=== PATIENT | female | born 1965 | race Caucasian/White ===

== ENCOUNTER 2018-07-03 07:52 | Inpatient (IN) | payer OTHER ==
[~2018-07-03] VITALS: Ht 167.6 cm; Wt 88.3 kg
[2018-07-03] VITALS (30 sets, daily range): BP systolic 81–155; BP diastolic 54–90; PULSE 68–124; RESP 11–39; Ht 167.6 cm; Wt 88.3 kg
[~2018-07-03 07:52] MED LIST: SUCCINYLCHOLINE CHLORIDE 100 MG/5 ML SYG IV ONE
[2018-07-03] MEDS ORDERED: GLYCOPYRROLATE 0.4 MG INJ ONE (08:56)
[2018-07-03] MEDS ORDERED: ROCURONIUM 50 MG INJ ONE (08:56)
[2018-07-03] MEDS ORDERED: LIDOCAINE 2% (SDV) 5 ML INJ ONE (08:56)
[2018-07-03] MEDS ORDERED: NEOSTIGMINE 3 MG/3 ML SYRINGE ONE (08:56)
[2018-07-03] MEDS ORDERED: PROPOFOL 20 ML ONE (08:56)
[2018-07-03] MEDS ORDERED: MIDAZOLAM 1 MG/ML 2 ML INJ ONE (08:57)
[2018-07-03] MEDS ORDERED: FENTAnyl 50 MCG/ML VIAL ONE ×3 (08:57→12:49)
[2018-07-03] MEDS ORDERED: ONDANSETRON 4 MG INJ ONE ×2 (08:58→12:53)
[2018-07-03] MEDS ORDERED: DEXAMETHASONE 4 MG/ML 5 ML INJ ONE (08:58)
[2018-07-03] MEDS ORDERED: LORAZEPAM 2 MG INJ IV ONE (09:00)
--- NOTE | 2018-07-03 09:54 | PREAC ---
Date/Time of Note Date/Time of Note DATE: 07/03/18 TIME: 09:02 Anesthesia Eval and Record Evaluation Time Pre-Procedure Interview DATE: 07/03/18 TIME: 09:02 Age 53 Sex female NPO: 8 hrs Preoperative diagnosis Left Breast CA Planned procedure Bilateral Mastectomy Past Medical History Past Medical History: Includes Cardio: Other Endo: Other Pulm: Other Neuro: Other Musculoskeletal: Other Renal: Other Hepatic: Other GI: Other Heme: Other Psych: Depression, Anxiety Infection(s): Other Recreational drugs: Other : Other Surgery & Anesthesia Issues Hx of difficult intubation, Aspiration risk Meds Anticoagulation: No Beta Destiny within 24 hr: No Reason Beta Destiny not given: Pt. not on B-Destiny No Active Prescriptions or Reported Meds Current Medications Cefazolin Sodium 50 ml @ 100 mls/hr PRE-OP ONCE IVPB ; Start 07/03/18 at 10:00; Stop 07/03/18 at 10:29 Sodium Chloride 1,000 ml @ 75 mls/hr [id number] ONCE IV Last administered on 07/03/18at 08:48; Admin Dose 75 MLS/HR; Start 07/03/18 at 10:00; Stop 07/03/18 at 23:19 Meds reviewed: Yes Allergies Coded Allergies: pseudoephedrine (Verified Allergy, Unknown, HEART PALPATATIONS, 07/03/18) Allergies Reviewed: Yes Labs/Studies Labs Reviewed: Reviewed by anesthesiologist Result Diagram: 07/03/18 0830 Laboratory Tests 07/03/18 08:30 test: Negative Studies: ECG Pre-procedure Exam Last vitals Vital Signs Date Temp Pulse Resp B/P (MAP) Pulse Ox O2 O2 Flow FiO2 Time Delivery Rate 07/03/18 97.3 79 16 111/56 94 Room Air 08:05 (74) Airway: Adequate mouth opening Mallampati: Mallampati II Teeth: Normal Lung: Normal Heart: Abnormal Anticipated Difficutly with IV: Anticipate Difficult IV Access ASA Physical Status ASA physical status: 2 Emergency: None Planned Anesthetic General/MAC: ETT Neuraxial: Other Nerve block: Other Planned Pain Management Parenteral pain med, Other neuraxial med, Local by surgeon Pre-operative Attestations Prior to commencing anesthesia and surgery, the patient was re-evaluated, there was verification of: *The patient's identity *The results of appropriate recent lab work and preoperative vital signs *The above evaluation not changing prior to induction *Anesthetic plan, risk benefits, alternative and complications discussed with patient/family; questions answered; patient/family understands, accepts and wishes to proceed. JORDIN KEBEDE MD Jul 03, 2018 09:12
[2018-07-03] MEDS ORDERED: CEFAZOLIN 1 GM/50 ML (PMX) 50 ML IVPB ONE (10:00)
[2018-07-03] MEDS ORDERED: SOD CHLORIDE 0.9% 1,000 ML IV ONE (10:00)
[2018-07-03] MEDS ORDERED: PHENYLephrine 10 MG INJ ONE (11:15)
[2018-07-03] MEDS ORDERED: D5W-0.45 NACL + KCL 20 MEQ 1,000 ML IV SCH (12:43)
--- NOTE | 2018-07-03 12:43 | SIPON ---
Date/Time of Note Date/Time of Note DATE: 07/03/18 TIME: 12:41 Operative Report Preoperative Diagnosis Invasive cancer left breast with biopsy-proven left axillary metastasis Postoperative Diagnosis Same Operation/Procedure Performed Left modified radical mastectomy and right mastectomy Surgeon see signature line butcher's assistant Dr Conway Anesthesia: general Estimated blood loss: 100 - 150 ml's Transfusion Required none Specimen Left breast and axillary contents with additional axillary lymph nodes and right breast Grafts/Implants none Complications none GEORGES BURCIAGA MD Jul 03, 2018 12:43
--- NOTE | 2018-07-03 12:46 | PAC ---
Date/Time of Note Date/Time of Note DATE: 07/03/18 TIME: 12:46 Post-Anesthesia Notes Post-Anesthesia Note Last documented vital signs Vital Signs Date Temp Pulse Resp B/P (MAP) Pulse Ox O2 O2 Flow FiO2 Time Delivery Rate 07/03/18 97.3 79 16 111/56 94 Room Air 08:05 (74) Activity: WNL Respiratory function: WNL Cardiovascular function: WNL Mental status: Baseline Pain reasonably controlled: Yes Hydration appropriate: Yes Nausea/Vomiting absent: No JORDIN KEBEDE MD Jul 03, 2018 12:46
[2018-07-03] MEDS ORDERED: MEPERIDINE 25 MG INJ ONE (12:53)
[2018-07-03] MEDS ORDERED: HYDROmorphONE 1 MG/5 ML IV SYRINGE IV ONE ×2 (12:53→13:49)
[2018-07-03] MEDS ORDERED: FENTAnyl 50 MCG/ML VIAL IV PRN ×3 (13:00)
[2018-07-03] MEDS ORDERED: PROCHLORPERAZINE 10 MG INJ IV PRN (13:00)
[2018-07-03] MEDS ORDERED: ALBUMIN HUMAN 5% 250 ML IV PRN (13:00)
[2018-07-03] MEDS ORDERED: MIDAZOLAM 1 MG/ML 2 ML INJ IV PRN (13:00)
[2018-07-03] MEDS ORDERED: morphine 2 MG INJ IV PRN (13:00)
[2018-07-03] MEDS ORDERED: DIPHENHYDRAMINE 50 MG INJ IV PRN (13:00)
[2018-07-03] MEDS ORDERED: MEPERIDINE 25 MG INJ IV PRN (13:00)
[2018-07-03] MEDS ORDERED: ALBUTEROL 0.083% (NEB) 2.5 MG/3 ML AMP HHN PRN (13:00)
[2018-07-03] MEDS ORDERED: HALOPERIDOL 5 MG INJ IV PRN (13:00)
[2018-07-03] MEDS ORDERED: ONDANSETRON 4 MG INJ IV PRN (13:00)
[2018-07-03] MEDS ORDERED: RACEPINEPHRINE 2.25%(NEB) 0.5 ML AMP HHN ONE (13:00)
[2018-07-03] MEDS ORDERED: HYDROmorphONE 1 MG/5 ML IV SYRINGE IV PRN ×3 (13:00)
[2018-07-03] MEDS ORDERED: hydrALAzine 20 MG INJ IV PRN (13:00)
[2018-07-03] MEDS ORDERED: morphine (1 MG/ML) 10ML SYRINGE IV PRN ×2 (13:00)
[2018-07-03] MEDS ORDERED: EPHEDrine SULFATE 50 MG/5 ML SYG IV PRN (13:00)
--- NOTE | 2018-07-03 13:43 | OPR ---
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 OPERATION PERFORMED: Left modified radical mastectomy and right mastectomy. ANESTHESIA: General. ANESTHESIOLOGIST: Víctor Bell MD SURGEON: Preet Monterroso MD SANITARY [place] MACHINE TENDER: Gunnar Conway MD INDICATIONS FOR PROCEDURE: The patient is a 53-year-old female who underwent screening mammography a nd was found very suspicious lesions consistent with microcalcifications in the left breast, one at 2 o'clock and one at 8 o'clock. They were biopsied and both found to be cancer. She was told due to the multicentricity, it was recommended she have a left modified radical mastectomy. It should also be noted that she has biopsy proven left axillary lymph nodes; however, she was HER-2 positive and th erefore received neoadjuvant chemotherapy and subsequently presented for definitive surgical manageme nt. Due to the fact she had great fear that she would develop cancer on the other side, she requeste d bilateral mastectomy. She was seen by attending plastic surgeon, Dr. Marrero. Due to the fact that she had previous implants in place, Dr. Marrero recommended performing the surgery, but leaving the s ubpectoral implants in place to allow for continued expansion of the anterior pectoral space. She th en returned to Dr. Monterroso. After complete discussion, she consented for left modified radical mastect lexi and right mastectomy and was scheduled for surgery. DESCRIPTION OF PROCEDURE: The patient was brought to the operating theater, placed under general end otracheal tube anesthesia. Both breasts and axillary regions were prepped and draped in usual steril e fashion. Attention was first directed to the right side with planned elliptical incision, taking g reat care to preserve a significant amount of breast skin, was demarcated with marking pen widely jj und the nipple areolar complex and was carried out with 15-blade scalpel. Subcutaneous tissue was di ssected with cautery. Skin edges were then elevated with [place]is [place] clamps and skin flaps were crea moody using cautery first superiorly to the clavicle, then medially to the sternal border, inferiorly t o the inframammary fold and laterally until the latissimus dorsi muscle was identified throughout its course. Mastectomy then took place from medial to lateral using cautery. At the border of the pect oralis major muscle, the pectoralis minor muscle was identified. The clavipectoral fascia was incise d and the tail of the breast was then further dissected and finally connective attachments to the lat issimus dorsi muscle were transected. The breast was removed, oriented and sent for permanent pathol ogic analysis. The wound was irrigated. Minimal bleeding was controlled with cautery. Two #10 Fren ch Farrukh-De Anda drains were then brought through the right mid axillary line. One was cut to size a nd laid within the axilla. The other was cut to size and laid over the pectoralis major muscle. Bot h drains were secured in place with 2-0 nylon suture in the standard fashion. Towel clips were then used to reapproximate the skin and the skin was closed with a deep dermal layer of 4-0 Vicryl sutures in interrupted fashion, followed by final skin approximation with skin naa. The patient tolerat ed that portion of procedure well. Attention was then directed to the left side. Again, a planned e lliptical incision was demarcated widely around the nipple areolar complex with taking great care to preserve significant amount of the breast overlying breast skin in anticipation of future reconstruct ion. The incision was carried out with 15-blade scalpel. Subcutaneous tissue was dissected with cau ronny and the skin edges were then elevated with Allis [place] clamps. The skin flaps were then created using cautery, first superiorly to the clavicle, then medially to the sternal border, inferiorly to the inframammary fold and laterally until the latissimus dorsi muscle was identified throughout its c ourse. Mastectomy then took place using cautery from medial to lateral. At the border of the pector christine major muscle, the pectoralis minor muscle was identified. The clavipectoral fascia was incised. A level 1 and partial level 2 dissection were performed using a combination of cautery and LigaSure device. Great care was taken to preserve the intercostal brachial nerves. Final connective tissues attached to the latissimus dorsi muscle were then transected with cautery. The specimen was removed , oriented and sent for permanent pathologic analysis. There was additional suspicious level 2 lymph nodes that were removed separately using the LigaSure device and sent separately for pathologic anal ysis. The wound was irrigated. Minimal bleeding was controlled with cautery. Two #10 flat Farrukh- De Anda drains were then brought through the left mid axillary line, one was cut to size and laid withi n the axilla, the other was cut to size and laid over the pectoralis major muscle. Both drains were secured in place with 2-0 nylon suture in a standard fashion. The skin was then reapproximated using towel clamps and the skin was then further reapproximated with multiple 4-0 Vicryl sutures and deep dermal interrupted fashion. Final skin approximation then took place with skin naa. The patient tolerated the procedure well. The total blood loss was approximately 150 mL. There were no complic ations and the patient was transported in stable condition to the recovery room where circumferential compression dressing was applied. Dictated By: PREET MONTERROSO MD TL/NTS Conf#: [id number] DID#: [id number] CC: KINSEY COOK MD;*EndCC*
[2018-07-03] MEDS ORDERED: DIPHENHYDRAMINE 50 MG INJ ONE (13:49)
--- NOTE | 2018-07-03 13:54 | HP ---
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 S/p left modified radical mastectomy and right mastectomy by Dr Monterroso on 07/03/18. Status post neoadjuvant chemotherapy. Continue IV fluids and postoperative antibiotics. Morphine as needed for pain and Zofran as needed for nausea. -Anxiety and depression, resume patient's home medication. Further recommendations based on clinical course. Plan of care discussed with Dr. Geiger. Result Diagram: 07/03/18 0830 07/03/18 0830 Results 24hrs Laboratory Tests Test 07/03/18 08:30 White Blood Count 5.9 Red Blood Count 4.39 Hemoglobin 12.9 Hematocrit 39.9 Mean Corpuscular Volume 90.9 Mean Corpuscular Hemoglobin 29.4 Mean Corpuscular Hemoglobin Concent 32.3 Red Cell Distribution Width 12.5 Platelet Count 327 Mean Platelet Volume 9.7 Immature Granulocytes % 0.300 Neutrophils % 47.0 Lymphocytes % 37.8 Monocytes % 9.4 Eosinophils % 4.3 Basophils % 1.2 Nucleated Red Blood Cells % 0.0 Immature Granulocytes # 0.020 Neutrophils # 2.8 Lymphocytes # 2.2 Monocytes # 0.6 Eosinophils # 0.3 Basophils # 0.1 Nucleated Red Blood Cells # 0.0 Prothrombin Time 11.3 L Prothrombin Time Ratio 0.9 INR International Normalized Ratio 0.81 Activated Partial Thromboplast Time 33.8 Sodium Level 143 Potassium Level 4.1 Chloride Level 107 Carbon Dioxide Level 25 Anion Gap 11 Blood Urea Nitrogen 23 H Creatinine 0.74 Est Glomerular Filtrat Rate mL/min > 60 Glucose Level 101 Calcium Level 9.6 Total Bilirubin 0.1 L Direct Bilirubin 0.00 Indirect Bilirubin 0.1 Aspartate Amino Transf (AST/SGOT) 19 Alanine Aminotransferase (ALT/SGPT) 18 Alkaline Phosphatase 69 Total Protein 7.2 Albumin 4.2 Globulin 3.00 Albumin/Globulin Ratio 1.40 HPI/ROS Admit Date/Time Admit Date/Time Jul 03, 2018 at 07:52 Hx of Present Illness The patient is a 53-year-old female who was found suspicious lesions on screening mammography in her left breast. Subsequent biopsy revealed invasive cancer. The tumor was ER negative CA negative but HER-2 positive. Patient received neoadjuvant chemotherapy after which she was seen by Dr. Monterroso in a general surgery consultation and was counseled regarding left modified radical mastectomy. Patient had a grade fever she would develop cancer in her right breast and she requested bilateral mastectomy. Patient has breast implants and was evaluated by Dr. Marrero and plastic surgery consultation with recommendations to leave sub-pictorial implants in place to allow for continued expansion of the anterior pectoral space. Patient was brought to the hospital and underwent bilateral mastectomy. Postoperatively patient experiencing significant pain and mild nausea and patient will be admitted for further evaluation and management. ROS 12 point review of systems negative except for what mentioned in HPI PMH/Family/Social Past Medical History Medical History: other (Depression and anxiety) Medications Current Medications Sodium Chloride 1,000 ml @ 75 mls/hr [id number] ONCE IV Last administered on 07/03/18at 08:48; Admin Dose 75 MLS/HR; Start 07/03/18 at 10:00; Stop 07/03/18 at 23:19 Ondansetron HCl (Zofran Inj) 4 mg Q6H PRN IV NAUSEA AND/OR VOMITING; Start 07/03/18 at 13:00; Stop 07/03/18 at 19:00; Status UNV Potassium Chloride/Dextrose/ Sod Cl 1,000 ml @ 125 mls/hr Q8H IV ; Start 07/03/18 at 12:43; Stop 07/03/18 at 19:00 Morphine Sulfate (morphine) 2 mg Q1H PRN IV PAIN; Start 07/03/18 at 13:00; Stop 07/03/18 at 19:00; Status UNV Acetaminophen 100 ml @ 400 mls/hr Q6H PRN IVPB PAIN; Start 07/03/18 at 13:00; Stop 07/03/18 at 19:00; Status UNV Morphine Sulfate (morphine (REC)) 2 mg PACU ORDER PRN IV MILD PAIN LEVEL 1-3; Start 07/03/18 at 13:00; Stop 07/03/18 at 19:00; Status UNV Morphine Sulfate (morphine (REC)) 4 mg PACU ORDER PRN IV MODERATE PAIN LEVEL 4- 6; Start 07/03/18 at 13:00; Stop 07/03/18 at 19:00; Status UNV Hydromorphone HCl (Dilaudid) 0.2 mg PACU PRN IV MILD PAIN LEVEL 1-3; Start 07/03/18 at 13:00; Stop 07/03/18 at 19:00; Status UNV Hydromorphone HCl (Dilaudid) 0.4 mg PACU PRN IV MODERATE PAIN LEVEL 4-6; Start 07/03/18 at 13:00; Stop 07/03/18 at 19:00; Status UNV Hydromorphone HCl (Dilaudid) 0.6 mg PACU PRN IV SEVERE PAIN LEVEL 7-10; Start 07/03/18 at 13:00; Stop 07/03/18 at 19:00; Status UNV Fentanyl (Sublimaze) 25 mcg PACU ORDER PRN IV MILD PAIN LEVEL 1-3; Start 07/03/18 at 13:00; Stop 07/03/18 at 19:00; Status UNV Fentanyl (Sublimaze) 50 mcg PACU ORDER PRN IV MODERATE PAIN LEVEL 4-6; Start 07/03/18 at 13:00; Stop 07/03/18 at 19:00; Status UNV Fentanyl (Sublimaze) 75 mcg PACU ORDER PRN IV SEVERE PAIN LEVEL 7-10; Start 07/03/18 at 13:00; Stop 07/03/18 at 19:00; Status UNV Ondansetron HCl (Zofran Inj) 4 mg PACU ORDER PRN IV NAUSEA AND/OR VOMITING; Start 07/03/18 at 13:00; Stop 07/03/18 at 19:00; Status UNV Prochlorperazine (Compazine Inj) 5 mg PACU ORDER PRN IV NAUSEA AND/OR VOMITING; Start 07/03/18 at 13:00; Stop 07/03/18 at 19:00; Status UNV Haloperidol (Haldol) 1 mg PACU ORDER PRN IV NAUSEA AND/OR VOMITING; Start 07/03/18 at 13:00; Stop 07/03/18 at 19:00; Status UNV Hydralazine HCl (Apresoline) 5 mg PACU ORDER PRN IV ELEVATED BLOOD PRESSURE; Start 07/03/18 at 13:00; Stop 07/03/18 at 19:00; Status UNV Ephedrine Sulfate 5 mg PACU ORDER PRN IV BLOOD PRESSURE SUPPORT; Start 07/03/18 at 13:00; Stop 07/03/18 at 19:00; Status UNV Albumin Human 250 ml @ 750 mls/hr PACU ORDER PRN IV BLOOD PRESSURE SUPPORT; Start 07/03/18 at 13:00; Stop 07/03/18 at 19:00; Status UNV Albuterol (Proventil 0.083% (Neb)) 2.5 mg PACU ORDER PRN HHN WHEEZING; Start 07/03/18 at 13:00; Stop 07/03/18 at 19:00; Status UNV Epinephrine (Racepinephrine 2.25% (Neb)) 0.5 ml PACU ORDER ONCE HHN ; Start 07/03/18 at 13:00; Stop 07/03/18 at 13:01; Status UNV Meperidine HCl (Demerol) 25 mg PACU ORDER PRN IV POST OPERATIVE SHIVERING; Start 07/03/18 at 13:00; Stop 07/03/18 at 19:00; Status UNV Diphenhydramine HCl (Benadryl) 25 mg PACU ORDER PRN IV PRURITUS; Start 07/03/18 at 13:00; Stop 07/03/18 at 19:00; Status UNV Midazolam HCl (Versed) 0.5 mg PACU ORDER PRN IV ANXIETY; Start 07/03/18 at 13:00; Stop 07/03/18 at 19:00; Status UNV Coded Allergies: pseudoephedrine (Verified Allergy, Unknown, HEART PALPATATIONS, 07/03/18) Past Surgical History Past Surgical Hx: other (Status post breast augmentation status post abdominoplasty, status post abdominal wall hernia repair, status post cholecystectomy) Family History Significant Family History: no pertinent family hx (Negative for breast or ovarian cancer) Social History Alcohol Use: none Smoking Status: Never smoker Drug Use: none Exam/Review of Systems Vital Signs Vitals Vital Signs Date Temp Pulse Resp B/P (MAP) Pulse Ox O2 O2 Flow FiO2 Time Delivery Rate 07/03/18 97.4 12:47 07/03/18 79 16 111/56 94 Room Air 08:05 (74) Exam Constitutional: alert Eyes: nl conjunctiva ENMT: nl external ears & nose Neck: supple Respiratory: clear to auscultation Cardiovascular: regular rate and rhythm Gastrointestinal: soft, non-tender Musculoskeletal: nl extremities to inspection Extremities: normal pulses Neurological: nl mental status, lethargic Skin: nl turgor Additional Comments Status post bilateral mastectomies bilateral axillary JPs x2 KELECHI NICHOLE Jul 03, 2018 13:54
[2018-07-03] MEDS ORDERED: METOPROLOL 5 MG INJ IV ONE (15:30)
[2018-07-03] MEDS ORDERED: SOD CHLORIDE 0.9% 500 ML IV ONE (18:00)
[2018-07-03] MEDS: LORAZEPAM 1 MG TAB PO PRN (18:19)
[2018-07-03] MEDS: ONDANSETRON 4 MG INJ IV PRN (18:59)
[2018-07-03] MEDS: D5W-0.45 NACL + KCL 20 MEQ 1,000 ML IV SCH (19:00)
[2018-07-03] MEDS: morphine SULFATE/PF (2 MG/2 ML) SYG IV PRN ×2 (20:41→22:01)
[2018-07-03] MEDS: ACETAMINOPHEN 1000MG/100ML IV 100 ML IVPB PRN (20:42)
[2018-07-04] VITALS: BP 126/63; PULSE 100; RESP 18
[2018-07-04] MEDS: morphine SULFATE/PF (2 MG/2 ML) SYG IV PRN ×7 (00:25→12:32)
[2018-07-04] MEDS: LORAZEPAM 1 MG TAB PO PRN ×3 (02:57→19:49)
[2018-07-04] MEDS: ONDANSETRON 4 MG INJ IV PRN ×3 (02:58→20:18)
[2018-07-04] MEDS: ACETAMINOPHEN 1000MG/100ML IV 100 ML IVPB PRN (03:00)
[2018-07-04] MEDS: D5W-0.45 NACL + KCL 20 MEQ 1,000 ML IV SCH ×3 (03:01→19:00)
[2018-07-04 04:00] VITALS: BP 120/73; PULSE 90; RESP 18
[2018-07-04 07:35] VITALS: BP 132/56; RESP 18
[2018-07-04] MEDS: HYDROCODONE/APAP (10/325) TAB PO PRN ×3 (14:00→22:28)
[2018-07-04 14:36] VITALS: BP 118/54; PULSE 107; RESP 18
--- NOTE | 2018-07-04 14:55 | PN ---
DATE: 07/04/2018 Postop day #1 status post bilateral mastectomy and one side left modified radical mastectomy because of the cancer. SUBJECTIVE: The patient has been complaining of too much pain and also complaining of generalized joint pain which of course has been going on since she has been receiving the neoadjuvant chemotherapy. OBJECTIVE: GENERAL: Awake, alert, oriented x3. VITAL SIGNS: Temperature maximum today 98.9, heart rate maximum 110, respirations 18, blood pressure 120/73, saturation 98% on room air. HEART: Regular. LUNGS: Clear. ABDOMEN: Soft. CHEST WALL: The wraparound dressing around the chest is not too tight. LABORATORY DATA: There are no blood tests done today. INPUT AND OUTPUT: There are 4 Farrukh-De Anda drains, 2 from each side of the operation and drainage in past several hours including from time of termination of the operation in the operating room yesterday to 7:00 AM today morning has been recorded to be 145 mL on one side and 150 mL on the other side. The drainage is bloody and actually, there are a lot of blood clots in the tubing, so the tubing was milked to evacuate the blood clots from the tubing so to facilitate its drainage.( suspecting more bleeding in the wound on left side). PLAN: Considering that the patient has been experiencing too much pain and also the drainage is quite bloody and is not serosanguineous yet, therefore we are going to keep the patient at least overnight to check the hemoglobin and hematocrit today and to check it tomorrow morning and also make sure that the Farrukh-De Anda drains are evacuating the drainage properly. Dictated By: MO LASSITER MD PS/NTS Conf#: [id number] DID#: [id number] CC: KINSEY COOK MD; GEORGES BURCIAGA MD;*EndCC* MTDD
[2018-07-04] MEDS: morphine 4 MG/ML VIAL IV PRN ×2 (16:31→20:19)
--- NOTE | 2018-07-04 16:53 | PN ---
Date/Time of Note Date/Time of Note DATE: 07/04/18 TIME: 16:52 Assessment/Plan VTE Prophylaxis Risk score (from [facility])>0 risk: 6 SCD applied (from [facility]): Yes Pharmacological prophylaxis: NA/contraindicated Pharm contraindication: bleeding, surgical contra Lines/Catheters IV [facility]ter Type (from [facility]): Peripheral IV Assessment/Plan Hospital Course Patient has a moderate to large output from DONALD has total of 4 DONALD 2 on each side, hemoglobin dropped to 6.1, patient is getting blood transfusion, complains of pain continue [place] and morphine as needed. 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 S/p left modified radical mastectomy and right mastectomy by Dr Monterroso on 07/03/18. Status post neoadjuvant chemotherapy. Continue postoperative antibiotics. Continue pain management. -Anemia of acute blood loss, patient has moderate to large out fluid from bilateral JPs, transfused 2 units of packed red blood cells, CBC tomorrow. -Anxiety and depression Further recommendations based on clinical course. Plan of care discussed with Dr. Geiger. Result Diagram: 07/04/18 1403 07/03/18 0830 Results 24hrs Laboratory Tests Test 07/04/18 07:33 07/04/18 14:03 Lab Scanned Report LAB White Blood Count 7.5 # Red Blood Count 1.99 #L Hemoglobin 6.1 #*L Hematocrit 19.0 #L Mean Corpuscular Volume 95.5 Mean Corpuscular Hemoglobin 30.7 Mean Corpuscular Hemoglobin Concent 32.1 Red Cell Distribution Width 13.4 Platelet Count 203 # Mean Platelet Volume 10.1 Immature Granulocytes % 0.300 Neutrophils % Segmented Neutrophils % (Manual) 66 Band Neutrophils % (Manual) 2 Lymphocytes % Lymphocytes % (Manual) 28 Monocytes % Monocytes % (Manual) 2 Eosinophils % Eosinophils % (Manual) 1 Basophils % Basophils % (Manual) 1 Nucleated Red Blood Cells % 0.0 Immature Granulocytes # 0.020 Neutrophils # Neutrophils # (Manual) 5.0 Band Neutrophils # 0.1 Lymphocytes (Manual) 2.1 Lymphocytes # Monocytes # Monocytes # (Manual) 0.1 L Eosinophils # Basophils # Basophils # (Manual) 0.0 Nucleated Red Blood Cells # Platelet Estimate NORMAL Giant Platelets 3 H Anisocytosis 2+ Microcytosis 2+ Prothrombin Time 13.9 # Prothrombin Time Ratio 1.1 INR International Normalized Ratio 1.06 Activated Partial Thromboplast Time 31.5 Exam/Review of Systems Vital Signs Vitals Vital Signs Date Temp Pulse Resp B/P (MAP) Pulse Ox O2 O2 Flow FiO2 Time Delivery Rate 07/04/18 98.6 107 18 118/54 100 14:36 (75) 07/04/18 Nasal 2.0 04:00 Cannula Intake and Output 07/03/18 07/03/18 07/04/18 1515:00 23:00 07:00 IntakeIntake Total 1260 ml 890 ml 1180 ml OutputOutput Total 325 ml 25 ml 110 ml BalanceBalance 935 ml 865 ml 1070 ml Exam Constitutional: alert, oriented x3 Respiratory: clear to auscultation Cardiovascular: nl pulse Gastrointestinal: soft, non-tender Musculoskeletal: nl extremities to inspection Extremities: normal pulses Additional Comments Status post bilateral mastectomies bilateral axillary JPs x2 Medications Medications Current Medications Ondansetron HCl (Zofran Inj) 4 mg Q6H PRN IV NAUSEA AND/OR VOMITING Last administered on 07/04/18at 12:32; Admin Dose 4 MG; Start 07/03/18 at 13:00 Lorazepam (Ativan) 1 mg Q8H PRN PO ANXIETY Last administered on 07/04/18 11:25; Admin Dose 1 MG; Start 07/03/18 at 18:00 Potassium Chloride/Dextrose/ Sod Cl 1,000 ml @ 125 mls/hr Q8H IV Last administered on 07/04/18 11:29; Admin Dose 125 MLS/HR; Start 07/03/18 at 19:00 Acetaminophen/ Hydrocodone Bitart ([place] (10/325)) 1 tab Q4H PRN PO MODERATE PAIN LEVEL 4-6 Last administered on 07/04/18at 14:00; Admin Dose 1 TAB; Start 07/04/18 at 14:00 Morphine Sulfate (morphine) 3 mg Q4H PRN IV breakthrough pain Last administered on 07/04/18at 16:31; Admin Dose 3 MG; Start 07/04/18 at 14:00 Zolpidem Tartrate (Ambien) 5 mg HS MAY REPEAT X 1 PRN PO INSOMNIA; Start 07/04/18 at 14:00 KELECHI NICHOLE Jul 04, 2018 16:53
[2018-07-04 19:32] VITALS: BP 130/57; PULSE 105; RESP 18
--- NOTE | 2018-07-04 19:45 | RADRPT ---
Vent Rate: 67 bpm RR Interval: 0 msec MA Interval: 128 msec QRS Duration: 96 msec QT Interval: 434 msec QTC Interval: 458 msec P-R-T [place]: 38 - 112 - 86 degrees Normal sinus rhythm Left posterior fascicular block Abnormal ECG Electronically Signed By: Tk Eagle [id number]
[2018-07-04] MEDS: ZOLPIDEM 5 MG TAB PO PRN ×2 (20:19→22:34)
[2018-07-04] MEDS ORDERED: DIPHENHYDRAMINE 25 MG CAP ONE (20:44)
[2018-07-04] MEDS: DIPHENHYDRAMINE 25 MG CAP PO PRN (21:09)
[2018-07-05] VITALS (9 sets, daily range): BP systolic 104–140; BP diastolic 51–64; PULSE 89–113; RESP 16–18
[2018-07-05] MEDS: morphine 4 MG/ML VIAL IV PRN ×5 (00:37→21:36)
[2018-07-05] MEDS: DIPHENHYDRAMINE 25 MG CAP PO PRN ×2 (02:40→11:13)
[2018-07-05] MEDS: HYDROCODONE/APAP (10/325) TAB PO PRN ×5 (02:40→23:36)
[2018-07-05] MEDS: D5W-0.45 NACL + KCL 20 MEQ 1,000 ML IV SCH ×3 (03:00→17:18)
[2018-07-05] MEDS: LORAZEPAM 1 MG TAB PO PRN ×3 (04:59→23:33)
[2018-07-05] MEDS: ONDANSETRON 4 MG INJ IV PRN (11:18)
--- NOTE | 2018-07-05 13:30 | PN ---
DATE: 07/05/2018 Postop day #2. Operation: Left modified radical mastectomy for cancer of breast, status post neoadjuvant chemotherapy and also right mastectomy. SUBJECTIVE: Feels slightly better, but still has some pain in the chest mainly on the left side. No nausea, no vomiting, is tolerating diet. OBJECTIVE: GENERAL: Awake, alert, oriented, moves both upper extremities in full range. VITAL SIGNS: Temperature maximum 99.9, heart rate 97, respirations 16, blood pressure 104/51, saturation 95% on room air. HEART: Regular. LUNGS: Clear. SKIN: Dressing is intact. There is some swelling on the left chest anteriorly comparing to the right side. INPUT AND OUTPUT: Still the drainage from the left Farrukh-De Anda is bloody. Right side is serosanguineous. The drainage in the past 24 hours on the right side has been 120 mL. It is serosanguineous. On the left side, there is 150 mL which is bloody and blood clots. LABORATORY DATA: Apparently yesterday afternoon when we checked the H and H, the H and H has dropped to 6.1 hemoglobin and hematocrit of 19, so Dr. Monterroso had been notified and he ordered transfusion of 2 units of packed cell and transfusion was finished around 5:00 a.m. per nurse then 2 hours later at 7:30 in the morning today they checked another CBC and H and H. The hemoglobin now is 8.2 and hematocrit of 25.6, platelets 177. Obviously the patient has had bleeding at the site of the operation mainly on the left breast mastectomy site.. PLAN: After discussing with Dr. Monterroso decision was made to take the patient to the OR and evacuate the hematoma. The patient has had breakfast today. Therefore, we are going to do it tomorrow morning hopefully as soon as we can find a spot in the operating room. The patient will be kept n.p.o. I explained to the patient and her about the plan and after discussion, she accepted that and we are going to proceed for evacuation of hematoma tomorrow. Meanwhile, we will check the H and H every 8 hours and if needed, we will give more blood transfusion. Dictated By: MO ALMANZAR/JEANNINE Conf#: [id number] DID#: [id number] CC: KINSEY COOK MD; GEORGES MONTERROSO MD;*EndCC* MTDD
--- NOTE | 2018-07-05 16:40 | PN ---
Date/Time of Note Date/Time of Note DATE: 07/05/18 TIME: 16:37 Assessment/Plan VTE Prophylaxis Risk score (from Ns)>0 risk: 6 SCD applied (from Ns): Yes Pharmacological prophylaxis: NA/contraindicated Pharm contraindication: bleeding Lines/Catheters [facility] Assessment/Plan Hospital Course Patient with significant drainage from the DONALD patient's complaints of heaviness in both breast apparently has left breast hematoma per surgery and significant d rop in hemoglobin, patient is undergoing blood transfusion with hemoglobin and hematocrit monitoring every 8 hours. Plan for evacuation of hematoma tomorrow in the OR, continue current pain management. 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 S/p left modified radical mastectomy and right mastectomy by Dr Monterroso on 07/03/18. Status post neoadjuvant chemotherapy. Continue postoperative antibiotics. Continue pain management. -Anemia of acute blood loss, patient has moderate to large out fluid from bilateral JPs, transfuse as needed, H&H every 8 hours. -Left breast hematoma, plan for evacuation of hematoma tomorrow in the OR. -Anxiety and depression Further recommendations based on clinical course. Plan of care discussed with Dr. Geiger. Result Diagram: 07/05/18 1453 07/05/18 0730 Results 24hrs Laboratory Tests Test 07/05/18 07:30 07/05/18 07:30 07/05/18 14:53 White Blood Count 7.8 Red Blood Count 2.78 #L Hemoglobin 8.2 #L 7.7 L Hematocrit 25.6 #L 23.7 L Mean Corpuscular Volume 92.1 Mean Corpuscular Hemoglobin 29.5 Mean Corpuscular 32.0 Hemoglobin Concent Red Cell Distribution Width 14.3 Platelet Count 177 Mean Platelet Volume 9.8 Immature Granulocytes % 0.500 H Neutrophils % 49.6 Lymphocytes % 36.0 Monocytes % 9.5 Eosinophils % 3.5 Basophils % 0.9 Nucleated Red Blood Cells % 0.0 Immature Granulocytes # 0.040 H Neutrophils # 3.8 Lymphocytes # 2.8 Monocytes # 0.7 Eosinophils # 0.3 Basophils # 0.1 Nucleated Red Blood Cells # 0.0 Sodium Level 135 Potassium Level 4.1 Chloride Level 107 Carbon Dioxide Level 24 Anion Gap 4 L Blood Urea Nitrogen 14 # Creatinine 0.72 Est Glomerular Filtrat > 60 Rate mL/min Glucose Level 95 Calcium Level 8.0 L Lab Scanned Report BLOOD TRANSFUSION Exam/Review of Systems Vital Signs Vitals Vital Signs Date Temp Pulse Resp B/P (MAP) Pulse Ox O2 O2 Flow FiO2 Time Delivery Rate 07/05/18 98.4 89 16 111/53 97 14:07 (72) 07/04/18 Nasal 2.0 04:00 Cannula Intake and Output 07/04/18 07/04/18 07/05/18 1414:59 22:59 06:59 IntakeIntake Total 1480 ml 1750 ml 940 ml OutputOutput Total 80 ml 190 ml BalanceBalance 1480 ml 1670 ml 750 ml Exam Constitutional: alert, oriented x3 Respiratory: clear to auscultation Cardiovascular: nl pulse Gastrointestinal: soft, non-tender Musculoskeletal: nl extremities to inspection Extremities: normal pulses Additional Comments Status post bilateral mastectomies bilateral axillary JPs x2 Medications Medications Current Medications Ondansetron HCl (Zofran Inj) 4 mg Q6H PRN IV NAUSEA AND/OR VOMITING Last administered on 07/05/18at 11:18; Admin Dose 4 MG; Start 07/03/18 at 13:00 Lorazepam (Ativan) 1 mg Q8H PRN PO ANXIETY Last administered on 07/05/18at 13:18; Admin Dose 1 MG; Start 07/03/18 at 18:00 Potassium Chloride/Dextrose/ Sod Cl 1,000 ml @ 125 mls/hr Q8H IV Last administered on 07/05/18at 08:06; Admin Dose 125 MLS/HR; Start 07/03/18 at 19:00 Acetaminophen/ Hydrocodone Bitart ([place] (10/325)) 1 tab Q4H PRN PO MODERATE PAIN LEVEL 4-6 Last administered on 07/05/18at 11:51; Admin Dose 1 TAB; Start 07/04/18 at 14:00 Morphine Sulfate (morphine) 3 mg Q4H PRN IV breakthrough pain Last administered on 07/05/18at 09:19; Admin Dose 3 MG; Start 07/04/18 at 14:00 Zolpidem Tartrate (Ambien) 5 mg HS MAY REPEAT X 1 PRN PO INSOMNIA Last administered on 07/04/18at 22:34; Admin Dose 5 MG; Start 07/04/18 at 14:00 Diphenhydramine HCl (Benadryl) 25 mg Q6H PRN PO ITCHING Last administered on 07/05/18at 11:13; Admin Dose 25 MG; Start 07/04/18 at 21:00 KELECHI NICHOLE Jul 05, 2018 16:40
[2018-07-05] MEDS: ZOLPIDEM 5 MG TAB PO PRN ×2 (21:06→22:23)
[2018-07-06] VITALS (25 sets, daily range): BP systolic 117–171; BP diastolic 58–88; PULSE 72–105; RESP 16–20
[2018-07-06] MEDS: DIPHENHYDRAMINE 25 MG CAP PO PRN (01:37)
[2018-07-06] MEDS: morphine 4 MG/ML VIAL IV PRN ×4 (02:03→21:31)
[2018-07-06] MEDS: D5W-0.45 NACL + KCL 20 MEQ 1,000 ML IV SCH ×4 (03:00→19:31)
[2018-07-06] MEDS: LORAZEPAM 2 MG INJ IV PRN ×2 (04:31→14:20)
--- NOTE | 2018-07-06 07:28 | PREAC ---
Date/Time of Note Date/Time of Note DATE: 07/06/18 TIME: 07:26 Anesthesia Eval and Record Evaluation Time Pre-Procedure Interview DATE: 07/06/18 TIME: 07:26 Age 53 Sex female NPO: 8 hrs Preoperative diagnosis left breast hematoma Planned procedure excision of left breast hematoma Past Medical History Past Medical History: Includes GI: Obesity Psych: Anxiety Surgery & Anesthesia Issues No known issue Meds Anticoagulation: No Beta Destiny within 24 hr: No Reason Beta Destiny not given: Pt. not on B-Destiny No Active Prescriptions or Reported Meds Current Medications Ondansetron HCl (Zofran Inj) 4 mg Q6H PRN IV NAUSEA AND/OR VOMITING Last administered on 07/05/18at 11:18; Admin Dose 4 MG; Start 07/03/18 at 13:00 Lorazepam (Ativan) 1 mg Q8H PRN PO ANXIETY Last administered on 07/05/18at 23:33; Admin Dose 1 MG; Start 07/03/18 at 18:00 Potassium Chloride/Dextrose/ Sod Cl 1,000 ml @ 125 mls/hr Q8H IV Last administered on 07/06/18at 04:34; Admin Dose 125 MLS/HR; Start 07/03/18 at 19:00 Acetaminophen/ Hydrocodone Bitart ([place] (10/325)) 1 tab Q4H PRN PO MODERATE PAIN LEVEL 4-6 Last administered on 07/05/18at 23:36; Admin Dose 1 TAB; Start 07/04/18 at 14:00 Morphine Sulfate (morphine) 3 mg Q4H PRN IV breakthrough pain Last administered on 07/06/18at 02:03; Admin Dose 3 MG; Start 07/04/18 at 14:00 Zolpidem Tartrate (Ambien) 5 mg HS MAY REPEAT X 1 PRN PO INSOMNIA Last administered on 07/05/18 22:23; Admin Dose 5 MG; Start 07/04/18 at 14:00 Diphenhydramine HCl (Benadryl) 25 mg Q6H PRN PO ITCHING Last administered on 07/06/18at 01:37; Admin Dose 25 MG; Start 07/04/18 at 21:00 Lorazepam (Ativan) 0.5 mg Q6H PRN IV ANXIETY Last administered on 07/06/18at 04:31; Admin Dose 0.5 MG; Start 07/05/18 at 17:00 Meds reviewed: Yes Allergies Coded Allergies: pseudoephedrine (Verified Allergy, Unknown, HEART PALPATATIONS, 07/03/18) Allergies Reviewed: Yes Labs/Studies Labs Reviewed: Reviewed by anesthesiologist Result Diagram: 07/06/18 0436 07/06/18 0436 Laboratory Tests 07/06/18 04:36 test: Negative Pre-procedure Exam Last vitals Vital Signs Date Temp Pulse Resp B/P (MAP) Pulse Ox O2 O2 Flow FiO2 Time Delivery Rate 07/06/18 99.0 97 18 136/64 04:00 (88) 07/05/18 100 19:34 07/04/18 Nasal 2.0 04:00 Cannula Airway: Adequate mouth opening, Adequate thyromental dist Mallampati: Mallampati II Teeth: Normal Lung: Normal Heart: Normal ASA Physical Status ASA physical status: 2 Emergency: None Planned Anesthetic General/MAC: LMA Planned Pain Management Parenteral pain med Pre-operative Attestations Prior to commencing anesthesia and surgery, the patient was re-evaluated, there was verification of: *The patient's identity *The results of appropriate recent lab work and preoperative vital signs *The above evaluation not changing prior to induction *Anesthetic plan, risk benefits, alternative and complications discussed with patient/family; questions answered; patient/family understands, accepts and wishes to proceed. THANG LYN MD Jul 06, 2018 07:28
[2018-07-06] MEDS ORDERED: FENTAnyl 50 MCG/ML VIAL ONE (07:47)
[2018-07-06] MEDS ORDERED: MIDAZOLAM 1 MG/ML 2 ML INJ ONE ×2 (07:47→08:02)
[2018-07-06] MEDS ORDERED: LIDOCAINE 2% (SDV) 5 ML INJ ONE (07:48)
[2018-07-06] MEDS ORDERED: PROPOFOL 20 ML ONE (07:48)
[2018-07-06] MEDS ORDERED: PHENYLephrine (100 MCG/ML) 5ML SYG ONE (08:11)
[2018-07-06] MEDS ORDERED: CEFAZOLIN 1 GM INJ ONE (08:11)
[2018-07-06] MEDS ORDERED: ONDANSETRON 4 MG INJ ONE (08:13)
[2018-07-06] MEDS ORDERED: DEXAMETHASONE 4 MG/ML 5 ML INJ ONE (08:13)
[2018-07-06] MEDS ORDERED: FAMOTIDINE 20 MG INJ ONE (08:13)
[2018-07-06] MEDS ORDERED: FENTAnyl 50 MCG/ML VIAL IV PRN (08:30)
[2018-07-06] MEDS ORDERED: ONDANSETRON 4 MG INJ IV PRN (08:30)
[2018-07-06] MEDS ORDERED: DIPHENHYDRAMINE 50 MG INJ IV PRN (08:30)
[2018-07-06] MEDS ORDERED: HYDROmorphONE 1 MG/5 ML IV SYRINGE IV PRN ×3 (08:30)
[2018-07-06] MEDS ORDERED: MEPERIDINE 25 MG INJ IV PRN (08:30)
[2018-07-06] MEDS ORDERED: PROCHLORPERAZINE 10 MG INJ IV PRN (08:30)
[2018-07-06] MEDS ORDERED: HYDROmorphONE 2 MG/ML SYG ONE (09:07)
--- NOTE | 2018-07-06 09:39 | SIPON ---
Date/Time of Note Date/Time of Note DATE: 07/06/18 TIME: 09:32 Operative Report Preoperative Diagnosis Left breast hematoma status post operation modified radical mastectomy. Postoperative Diagnosis The same Operation/Procedure Performed Exploration of the wound. Evacuation of hematoma. Irrigation of the wound with warm normal saline. Placement of 2 new Farrukh-De Anda drains. Closure of the wound in 2 layers. Surgeon see signature line catering administrative assistant None Anesthesia: general Estimated blood loss: 0 - 10 ml's Transfusion Required none Specimen Cultures from the hematoma. Grafts/Implants none Complications none MO LASSITER MD Jul 06, 2018 09:39
--- NOTE | 2018-07-06 09:51 | PAC ---
Date/Time of Note Date/Time of Note DATE: 07/06/18 TIME: 09:49 Post-Anesthesia Notes Post-Anesthesia Note Last documented vital signs Vital Signs Date Temp Pulse Resp B/P (MAP) Pulse Ox O2 O2 Flow FiO2 Time Delivery Rate 07/06/18 99.0 97 18 136/64 04:00 (88) 07/05/18 100 19:34 07/04/18 Nasal 2.0 04:00 Cannula Activity: WNL Respiratory function: WNL Cardiovascular function: WNL Mental status: Baseline Pain reasonably controlled: Yes Hydration appropriate: Yes Nausea/Vomiting absent: Yes Comments BP: 131/68 HR: 77 RR: 15 T: 98.3 SaO2: 99% THANG LYN MD Jul 06, 2018 09:51
[2018-07-06] MEDS: CEFAZOLIN 1 GM/50 ML (PMX) 50 ML IVPB SCH ×2 (11:34→18:17)
[2018-07-06] MEDS: HYDROCODONE/APAP (10/325) TAB PO PRN ×2 (15:26→19:31)
--- NOTE | 2018-07-06 16:07 | PN ---
Date/Time of Note Date/Time of Note DATE: 07/06/18 TIME: 16:03 Assessment/Plan VTE Prophylaxis Risk score (from Ns)>0 risk: 18 SCD applied (from [facility] [place]): Yes Pharmacological prophylaxis: NA/contraindicated Pharm contraindication: bleeding Lines/Catheters IV C[facility]ter Type (from [facility]): Port a cath Urinary Cath still in place: No Assessment/Plan Hospital Course Patient is status post status post drainage of hematoma by Dr. Conway today. Patient complains of pain, adequately controlled on current pain management, continue current pain management. Hemoglobin is 9.4 status post 2 units of packed red blood cells transfusion yesterday, continue to monitor JPs output, hemoglobin and hematocrit. 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 S/p left modified radical mastectomy and right mastectomy by Dr Monterroso on 07/03/18. Status post neoadjuvant chemotherapy. Continue postoperative antibiotics. Continue pain management. -Anemia of acute blood loss, transfuse as needed point, continue to monitor H&H. -Anxiety and depression Further recommendations based on clinical course. Plan of care discussed with Dr. Geiger. Result Diagram: 07/06/18 1443 07/06/18 0436 Results 24hrs Laboratory Tests Test 07/06/18 04:36 07/06/18 07:53 07/06/18 12:37 07/06/18 14:43 White Blood Count 8.4 Red Blood Count 2.95 L Hemoglobin 8.9 L 9.3 L 9.4 L Hematocrit 27.2 L 28.6 L 28.8 L Mean Corpuscular 92.2 Volume Mean Corpuscular 30.2 Hemoglobin Mean Corpuscular 32.7 Hemoglobin Concen t Red Cell 14.2 Distribution Width Platelet Count 189 Mean Platelet 9.9 Volume Immature 0.700 H Granulocytes % Neutrophils % 54.2 Lymphocytes % 31.4 Monocytes % 8.2 Eosinophils % 4.9 Basophils % 0.6 Nucleated Red 0.0 Blood Cells % Immature 0.060 H Granulocytes # Neutrophils # 4.6 Lymphocytes # 2.7 Monocytes # 0.7 Eosinophils # 0.4 Basophils # 0.1 Nucleated Red 0.0 Blood Cells # Sodium Level 135 Potassium Level 4.4 Chloride Level 104 Carbon Dioxide 26 Level Anion Gap 5 Blood Urea 10 Nitrogen Creatinine 0.67 Est Glomerular > 60 Filtrat Rate mL/min Glucose Level 108 Calcium Level 8.4 Lab Scanned BLOOD TRANSFUSIO Report N Exam/Review of Systems Vital Signs Vitals Vital Signs Date Temp Pulse Resp B/P (MAP) Pulse Ox O2 O2 Flow FiO2 Time Delivery Rate 07/06/18 98.6 72 20 128/60 96 Nasal 13:18 (82) Cannula 07/06/18 2.0 10:55 Intake and Output 07/05/18 07/05/18 07/06/18 1515:00 23:00 07:00 IntakeIntake Total 1170 ml 1204 ml 1950 ml OutputOutput Total 90 ml 220 ml 100 ml BalanceBalance 1080 ml 984 ml 1850 ml Exam Constitutional: alert, oriented x3 Respiratory: clear to auscultation Cardiovascular: nl pulse Gastrointestinal: soft, non-tender Musculoskeletal: nl extremities to inspection Extremities: normal pulses Additional Comments Status post bilateral mastectomies bilateral axillary JPs x2 Medications Medications Current Medications Ondansetron HCl (Zofran Inj) 4 mg Q6H PRN IV NAUSEA AND/OR VOMITING Last administered on 07/05/18at 11:18; Admin Dose 4 MG; Start 07/03/18 at 13:00 Lorazepam (Ativan) 1 mg Q8H PRN PO ANXIETY Last administered on 07/05/18 23:33; Admin Dose 1 MG; Start 07/03/18 at 18:00 Potassium Chloride/Dextrose/ Sod Cl 1,000 ml @ 125 mls/hr Q8H IV Last administered on 07/06/18 04:34; Admin Dose 125 MLS/HR; Start 07/03/18 at 19:00 Acetaminophen/ Hydrocodone Bitart ([place] (10/325)) 1 tab Q4H PRN PO MODERATE PAIN LEVEL 4-6 Last administered on 07/06/18at 15:26; Admin Dose 1 TAB; Start 07/04/18 at 14:00 Morphine Sulfate (morphine) 3 mg Q4H PRN IV breakthrough pain Last administered on 07/06/18at 14:15; Admin Dose 3 MG; Start 07/04/18 at 14:00 Zolpidem Tartrate (Ambien) 5 mg HS MAY REPEAT X 1 PRN PO INSOMNIA Last administered on 07/05/18at 22:23; Admin Dose 5 MG; Start 07/04/18 at 14:00 Diphenhydramine HCl (Benadryl) 25 mg Q6H PRN PO ITCHING Last administered on 07/06/18at 01:37; Admin Dose 25 MG; Start 07/04/18 at 21:00 Lorazepam (Ativan) 0.5 mg Q6H PRN IV ANXIETY Last administered on 07/06/18at 14:20; Admin Dose 0.5 MG; Start 07/05/18 at 17:00 Ondansetron HCl (Zofran Inj) 4 mg PACU ORDER PRN IV NAUSEA AND/OR VOMITING; Start 07/06/18 at 08:30; Stop 07/06/18 at 20:00 Diphenhydramine HCl (Benadryl) 25 mg PACU ORDER PRN IV PRURITUS; Start 07/06/18 at 08:30; Stop 07/06/18 at 20:00 Cefazolin Sodium 50 ml @ 100 mls/hr Q6 IVPB Last administered on 07/06/18at 11:34; Admin Dose 100 MLS/HR; Start 07/06/18 at 12:00; Stop 07/07/18 at 11:59 KELECHI NICHOLE Jul 06, 2018 16:07
[2018-07-06] MEDS ORDERED: BISACODYL (EC) 5 MG TAB PO PRN (16:30)
--- NOTE | 2018-07-06 17:03 | OPR ---
DATE OF OPERATION: 07/06/2018 PREOPERATIVE DIAGNOSES: Hematoma at site of left breast modified radical mastectomy which was done on 07/03/2018. POSTOPERATIVE DIAGNOSES: Hematoma at site of left breast modified radical mastectomy which was done on 07/03/2018. PROCEDURES: 1. Exploration of the surgical wound. 2. Evacuation of the hematoma. 3. Irrigation of the wound with warm saline solution. 4. Control of bleeders. 5. Placement of 2 new Farrukh-De Anda drains under the skin flaps. 6. Closure of the wound in 2 layers, deep layer with #3-0 Vicryl interrupted and skin closure with naa. ANESTHESIA: General. ANESTHESIOLOGIST: Jesica Lucia MD ESTIMATED BLOOD LOSS: 10 mL (the evacuation of hematoma is not considered as a blood loss at the time of operation). ESTIMATED EVACUATED BLOOD LOSS: Around 500 mL to 700 mL. clots SPECIMEN: Culture from hematoma. INDICATIONS: This is a 53-year-old female who had bilateral mastectomy, left side modified radical mastectomy for invasive cancer of the left breast on 07/03/2018. The patient previously has had neoadjuvant chemotherapy as well. In any case, the Farrukh-De Anda drain has continued to drain bloody fluid post-operation and hemoglobin and hematocrit postop day #1 dropped from admission number which was around 12 to number 6.1 and hematocrit 19. Two units of packed cells were given to the patient and then, the patient was scheduled for the exploration. I discussed with the patient and explained the situation. Also Dr. Monterroso, the surgeon, evaluated the patient and the decision was made to proceed with evacuation of the hematoma. PROCEDURE IN DETAILS: The patient was brought to the operating room after having signed the consent for evacuation of the hematoma and was placed on the operating table in supine position. Anesthesia was induced by the anesthesiologist. All the previous old dressing were removed completely. The area of the operation namely left breast and vicinity was prepped with Betadine and draped in a sterile fashion. A 2 grams of antibiotic Ancef IV was given to the patient. Time-out was called and the patient was identified, site of operation and procedure were discussed among the team. Then the 2 Farrukh-De Anda drains which previously had been placed were removed after removing the sutures and then the naa were removed with the staple removal and the wound was opened after cutting the interrupted deep layer Vicryl sutures. Then, the wound edges were grasped with 4 towel clips and from each other and then the surgeon put in a sterile gloved hand in the wound and gradually removed the clots from medial to lateral and inferior and superior flap. All the clots were removed. Estimated amount was probably around 500 to 700 mL. Few more spots of clot were left in the tissues which were quite adherent so they were not removed. Wound was thoroughly irrigated with warm normal saline solution and then the edges of the skin flaps were lifted off. The cavity was filled up with more saline solution and inspected. There was no evidence of acute bleeding. The main bleeder of course could not be found. Then 2 new Farrukh-De Anda drains were placed from the previous site into the wound. One was left at the level of the left axillary area and the other one left under the flap inferiorly. Then, the skin was closed in 2 layers, deep layer with #3-0 Vicryl, which included deep dermal layer, interrupted sutures were placed and then the skin was approximated and closed with skin naa. The 2 Farrukh-De Anda drains were anchored to the skin with #2-0 nylon. At the end of the procedure, the drainage bag were applied to the Farrukh-De Anda tubings and activated. Over the staple line, Xeroform dressing was applied on top of it. Bulky sponge dressing and tape to the skin and on top of that, another layer of Bias dressing will be applied by the nurses in the recovery room. The patient was extubated in stable condition and was transferred to the recovery room. Sponge, needle and instrument counts were reported to be correct x2 at the end of the procedure. Estimated blood loss was 10 mL. Dictated By: MO LASSITER MD PS/NTS Conf#: [id number] DID#: [id number] CC: KINSEY COOK MD; GEORGES MONTERROSO MD;*AltagraciaCC* MTDD
[2018-07-06] MEDS: DOCUSATE SODIUM 100 MG CAP PO SCH (20:21)
[2018-07-06] MEDS: ZOLPIDEM 5 MG TAB PO PRN ×2 (21:31→22:29)
[2018-07-07] VITALS (7 sets, daily range): BP systolic 134–159; BP diastolic 60–70; PULSE 66–82; RESP 17–18
[2018-07-07] MEDS: LORAZEPAM 1 MG TAB PO PRN ×2 (00:01→08:33)
[2018-07-07] MEDS: CEFAZOLIN 1 GM/50 ML (PMX) 50 ML IVPB SCH ×2 (00:01→05:21)
[2018-07-07] MEDS: D5W-0.45 NACL + KCL 20 MEQ 1,000 ML IV SCH ×4 (05:22→19:00)
[2018-07-07] MEDS: morphine 4 MG/ML VIAL IV PRN ×5 (05:22→23:01)
[2018-07-07] MEDS: ONDANSETRON 4 MG INJ IV PRN (06:02)
[2018-07-07] MEDS: HYDROCODONE/APAP (10/325) TAB PO PRN ×2 (08:02→20:52)
[2018-07-07] MEDS: DOCUSATE SODIUM 100 MG CAP PO SCH ×2 (08:02→20:51)
--- NOTE | 2018-07-07 11:38 | PN ---
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 S/p left modified radical mastectomy and right mastectomy by Dr Monterroso on 07/03/18. Status post neoadjuvant chemotherapy. Continue postoperative antibiotics. Continue pain management. -Anemia of acute blood loss, transfuse as needed point, continue to monitor H&H. -Anxiety and depression Further recommendations based on clinical course. Plan of care discussed with Dr. Geiger. Result Diagram: 07/07/18 0559 07/06/18 0436 Results 24hrs Laboratory Tests Test 07/06/18 12:37 07/06/18 14:43 07/06/18 22:54 07/07/18 05:49 Hemoglobin 9.3 L 9.4 L 8.8 L Hematocrit 28.6 L 28.8 L 26.7 L Lab Scanned Report REFERENCE LAB Test 07/07/18 05:57 07/07/18 05:59 White Blood Count 8.6 Red Blood Count 2.73 L Hemoglobin 8.4 L 8.3 L Hematocrit 25.5 L 25.5 L Mean Corpuscular 93.4 Volume Mean Corpuscular 30.8 Hemoglobin Mean Corpuscular 32.9 Hemoglobin Concent Red Cell 14.1 Distribution Width Platelet Count 208 Mean Platelet 10.3 Volume Immature 0.700 H Granulocytes % Neutrophils % 65.7 Lymphocytes % 20.0 Monocytes % 9.8 Eosinophils % 3.4 Basophils % 0.4 Nucleated Red 0.0 Blood Cells % Immature 0.060 H Granulocytes # Neutrophils # 5.6 Lymphocytes # 1.7 Monocytes # 0.8 Eosinophils # 0.3 Basophils # 0.0 Nucleated Red 0.0 Blood Cells # Exam/Review of Systems Vital Signs Vitals Vital Signs Date Temp Pulse Resp B/P (MAP) Pulse Ox O2 O2 Flow FiO2 Time Delivery Rate 07/07/18 97.7 82 18 140/61 97 Room Air 08:00 (87) 07/06/18 2.0 10:55 Intake and Output 07/06/18 07/06/18 07/07/18 1515:00 23:00 07:00 IntakeIntake Total 1050 ml 1650 ml 1600 ml OutputOutput Total 240 ml 120 ml 50 ml BalanceBalance 810 ml 1530 ml 1550 ml Medications Medications Current Medications Ondansetron HCl (Zofran Inj) 4 mg Q6H PRN IV NAUSEA AND/OR VOMITING Last administered on 07/07/18 06:02; Admin Dose 4 MG; Start 07/03/18 at 13:00 Lorazepam (Ativan) 1 mg Q8H PRN PO ANXIETY Last administered on 07/07/18 08:33; Admin Dose 1 MG; Start 07/03/18 at 18:00 Potassium Chloride/Dextrose/ Sod Cl 1,000 ml @ 125 mls/hr Q8H IV Last administered on 07/07/18 05:22; Admin Dose 125 MLS/HR; Start 07/03/18 at 19:00 Acetaminophen/ Hydrocodone Bitart ([place] (10/325)) 1 tab Q4H PRN PO MODERATE PAIN LEVEL 4-6 Last administered on 07/07/18 08:02; Admin Dose 1 TAB; Start 07/04/18 at 14:00 Morphine Sulfate (morphine) 3 mg Q4H PRN IV breakthrough pain Last administered on 07/07/18at 10:14; Admin Dose 3 MG; Start 07/04/18 at 14:00 Zolpidem Tartrate (Ambien) 5 mg HS MAY REPEAT X 1 PRN PO INSOMNIA Last administered on 07/06/18 22:29; Admin Dose 5 MG; Start 07/04/18 at 14:00 Diphenhydramine HCl (Benadryl) 25 mg Q6H PRN PO ITCHING Last administered on 07/06/18 01:37; Admin Dose 25 MG; Start 07/04/18 at 21:00 Cefazolin Sodium 50 ml @ 100 mls/hr Q6 IVPB Last administered on 07/07/18 05:21; Admin Dose 100 MLS/HR; Start 07/06/18 at 12:00; Stop 07/07/18 at 11:59 Docusate Sodium (Colace) 100 mg BID PO Last administered on 07/07/18 08:02; Admin Dose 100 MG; Start 07/06/18 at 21:00 Bisacodyl (Dulcolax) 5 mg DAILY PRN PO CONSTIPATION; Start 07/06/18 at 16:30 JUAN CHERRY Jul 07, 2018 11:38
[2018-07-07] MEDS ORDERED: MAGNESIUM HYDROXIDE 30ML CUP PO PRN (15:30)
[2018-07-07] MEDS ORDERED: MAGNESIUM HYDROXIDE 30ML CUP PO ONE (15:30)
--- NOTE | 2018-07-07 17:15 | PN ---
DATE: 07/07/2018 Postop day #4, status post bilateral modified radical mastectomy, and postop day #1 status post evacu ation of the hematoma from the left breast operation site. SUBJECTIVE: Feels slightly weak. Pain is under control. OBJECTIVE GENERAL: Awake, alert, oriented x3. VITAL SIGNS: Temperature maximum today 97.7, heart rate 82, respirations 18, blood pressure 144/65, saturation 97%. room air LABORATORY DATA: Today, WBC 8600, hemoglobin 8.4, hematocrit 25.5, platelets 208. (This hemoglobin after the patient has received 3 units of packed cells and after hematoma has been e vacuated from the left breast.) PHYSICAL EXAMINATION: GENERAL: Awake, alert. CARDIOVASCULAR: Regular. LUNGS: Clear. ABDOMEN: Soft. Dressing was not proper, so the wrap around was opened and rewrapped around the chest wall. Farrukh- De Anda drainage on the right side in past 24 hours has been total of 100 mL serosanguineous, and Jacks on-De Anda drain on the left side when she is post-reoperation and evacuation of hematoma since the stanislaw e of operation which was 8:00 yesterday morning to 7:00 a.m. today has drained 235 mL. The drainage is more than serosanguineous, but there is no blood clot in it, and it is not pure blood. It is more bloody, but it is sort of serosanguineous. ABDOMEN: Soft. EXTREMITIES: Legs no calf tenderness. ASSESSMENT: Postoperative evacuation of hematoma. The patient is stable. We are going to keep the patient at least 1 more day to make sure that the drainage is not going to get bloody, and if by , which is Tuesday, the patient is stable, we are going to discharge the patient home. Dictated By: MO LASSITER MD PS/NTS Conf#: [id number] DID#: [id number] CC: GEORGES BURCIAGA MD;*EndCC*
[2018-07-07] MEDS ORDERED: AL HYDROX/MG HYDROX/SIMETH 30 ML CUP PO PRN (18:00)
[2018-07-08] VITALS (7 sets, daily range): BP systolic 119–148; BP diastolic 55–88; PULSE 70–86; RESP 16–18
[2018-07-08] MEDS: ONDANSETRON 4 MG INJ IV PRN ×2 (00:40→13:43)
[2018-07-08] MEDS: D5W-0.45 NACL + KCL 20 MEQ 1,000 ML IV SCH ×5 (00:41→19:00)
[2018-07-08] MEDS: morphine 4 MG/ML VIAL IV PRN ×5 (02:55→21:01)
[2018-07-08] MEDS: DOCUSATE SODIUM 100 MG CAP PO SCH ×2 (08:01→21:06)
[2018-07-08] MEDS: LORAZEPAM 1 MG TAB PO PRN (08:01)
--- NOTE | 2018-07-08 12:35 | PN ---
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 S/p left modified radical mastectomy and right mastectomy by Dr Monterroso on 07/03/18. Status post neoadjuvant chemotherapy. Continue postoperative antibiotics. Continue pain management. -Anemia of acute blood loss, transfuse as needed point, continue to monitor H&H. -Anxiety and depression Further recommendations based on clinical course. Plan of care discussed with Dr. Geiger. Result Diagram: 07/08/18 0632 07/06/18 0436 Results 24hrs Laboratory Tests Test 07/07/18 18:58 07/08/18 06:32 Hemoglobin 9.3 L 8.9 L Hematocrit 28.6 L 27.7 L White Blood Count 6.4 # Red Blood Count 2.88 L Mean Corpuscular Volume 96.2 Mean Corpuscular Hemoglobin 30.9 Mean Corpuscular Hemoglobin Concent 32.1 Red Cell Distribution Width 14.7 H Platelet Count 224 Mean Platelet Volume 9.6 Immature Granulocytes % 0.800 H Neutrophils % 48.1 Lymphocytes % 34.1 Monocytes % 9.1 Eosinophils % 7.1 H Basophils % 0.8 Nucleated Red Blood Cells % 0.0 Immature Granulocytes # 0.050 H Neutrophils # 3.1 Lymphocytes # 2.2 Monocytes # 0.6 Eosinophils # 0.5 Basophils # 0.1 Nucleated Red Blood Cells # 0.0 Subjective 24 Hr Interval Summary Free Text/Dictation - C/O left breast pain - DONALD drain - bloody grainage -appx 50 cc Exam/Review of Systems Vital Signs Vitals Vital Signs Date Temp Pulse Resp B/P (MAP) Pulse Ox O2 O2 Flow FiO2 Time Delivery Rate 07/08/18 98.6 70 16 119/55 95 09:21 (76) 07/08/18 Room Air 08:00 07/06/18 2.0 10:55 Intake and Output 07/07/18 07/07/18 07/08/18 1515:00 23:00 07:00 IntakeIntake Total 1320 ml 1860 ml 1100 ml OutputOutput Total 80 ml 140 ml BalanceBalance 1320 ml 1780 ml 960 ml Medications Medications Current Medications Ondansetron HCl (Zofran Inj) 4 mg Q6H PRN IV NAUSEA AND/OR VOMITING Last administered on 07/08/18 00:40; Admin Dose 4 MG; Start 07/03/18 at 13:00 Lorazepam (Ativan) 1 mg Q8H PRN PO ANXIETY Last administered on 07/08/18 08:01; Admin Dose 1 MG; Start 07/03/18 at 18:00 Potassium Chloride/Dextrose/ Sod Cl 1,000 ml @ 125 mls/hr Q8H IV Last administered on 07/08/18 09:37; Admin Dose 125 MLS/HR; Start 07/03/18 at 19:00 Acetaminophen/ Hydrocodone Bitart ([place] (10/325)) 1 tab Q4H PRN PO MODERATE PAIN LEVEL 4-6 Last administered on 07/07/18 20:52; Admin Dose 1 TAB; Start 07/04/18 at 14:00 Morphine Sulfate (morphine) 3 mg Q4H PRN IV breakthrough pain Last administered on 07/08/18 12:17; Admin Dose 3 MG; Start 07/04/18 at 14:00 Zolpidem Tartrate (Ambien) 5 mg HS MAY REPEAT X 1 PRN PO INSOMNIA Last administered on 07/06/18 22:29; Admin Dose 5 MG; Start 07/04/18 at 14:00 Diphenhydramine HCl (Benadryl) 25 mg Q6H PRN PO ITCHING Last administered on 07/06/18 01:37; Admin Dose 25 MG; Start 07/04/18 at 21:00 Docusate Sodium (Colace) 100 mg BID PO Last administered on 07/08/18 08:01; Admin Dose 100 MG; Start 07/06/18 at 21:00 Bisacodyl (Dulcolax) 5 mg DAILY PRN PO CONSTIPATION Last administered on 07/08/18 01:06; Admin Dose 5 MG; Start 07/06/18 at 16:30 Magnesium Hydroxide (Milk Of Mag) 30 ml QHS PRN PO CONSTIPATION; Start 07/07/18 at 15:30 Al Hydrox/Mg Hydrox/Simethicone (Mag-Al Plus) 30 ml Q4H PRN PO GASTROINTESTINAL UPSET; Start 07/07/18 at 18:00 JUAN CHERRY Jul 08, 2018 12:35
[2018-07-08] MEDS: HYDROCODONE/APAP (10/325) TAB PO PRN (13:40)
[2018-07-08] MEDS ORDERED: ACETAMINOPHEN 500 MG TAB PO PRN (14:30)
[2018-07-08] MEDS: KETOROLAC 30 MG INJ IV SCH ×3 (15:15→23:06)
[2018-07-08] MEDS: MINERAL OIL 30ML CUP PO SCH (17:58)
--- NOTE | 2018-07-08 19:32 | PN ---
DATE: 07/08/2018 Postop day #2 status post evacuation of the hematoma from the left breast operation site following the modified radical mastectomy. SUBJECTIVE: States that she woke up with panic attack. She has a lot of pain in the muscles on the back and the neck. She thinks she has severe headache, which she calls it as a migraine, but she never has been diagnosed before with a migraine and she has some on and off headache at home as well. She takes Tylenol for that pain medication when she has a headache. OBJECTIVE GENERAL: Awake, alert, oriented. VITAL SIGNS: Temperature 98.6, heart rate 76, respirations 16, blood pressure 119/55, saturation 95% on room air. LABORATORY DATA: WBC 6400, hemoglobin 8.9, hematocrit 27.7, platelet 224, differential of CBC is 48% neutrophils. Chemistry: Sodium, potassium normal. BUN 10, creatinine 0.67, which is normal. PHYSICAL EXAMINATION: HEAD AND NECK: Supple. There is no neck rigidity. HEART: Regular. LUNGS: Clear. Dressing is intact. It is not too tight. Farrukh-De Anda drain is in place, 2 on the right side. They have drained 70 mL in past 24 hours, which is serous fluid almost in the left side. Two Farrukh-De Anda since yesterday morning to today morning. They have drained total 150 mL, which is serosanguineous. It is not blood anymore and there is no clot in that. EXTREMITIES: Legs no calf tenderness. Also, the patient is complaining of constipation. She has not had bowel movement for 3 to 4 days. She has been getting milk of magnesia and other stuff which apparently is not helping. ASSESSMENT AND PLAN: Postop day #2 for the complication of first operation which was a hematoma of the left breast that was evacuated on . Since then, the patient has been stable. Hemoglobin has been stable. The patient also today is complaining of severe headache. We are going to give her Tylenol for headache and we are going to give mineral oil, so that help her to have a bowel movement. Also add Toradol to the pain medication regimen, considering all of these findings and if the patient is not feeling comfortable at all and she states she does not feel good. I told her, especially because of the headache and neck muscle spasm and back pain, we are going to keep her one more day. Actually, she requested that she wants to stay at least 1 more day, so will evaluate her tomorrow and most probably we are going to discharge her tomorrow in the care of her . Dictated By: MO ALMANZAR/NTS Conf#: [id number] DID#: [id number] MTDD
[2018-07-09] MEDS: MINERAL OIL 30ML CUP PO SCH ×4 (01:41→13:19)
[2018-07-09] MEDS: morphine 4 MG/ML VIAL IV PRN ×4 (01:50→15:05)
[2018-07-09] MEDS: D5W-0.45 NACL + KCL 20 MEQ 1,000 ML IV SCH ×3 (01:53→10:21)
[2018-07-09 02:05] VITALS: BP 129/62; PULSE 90; RESP 18
[2018-07-09] MEDS: KETOROLAC 30 MG INJ IV SCH ×3 (02:30→13:52)
[2018-07-09 05:01] VITALS: BP 138/62; PULSE 76; RESP 18
[2018-07-09] MEDS: LORAZEPAM 1 MG TAB PO PRN (05:06)
[2018-07-09 08:00] VITALS: BP 130/78; PULSE 80; RESP 18
[2018-07-09] MEDS: DOCUSATE SODIUM 100 MG CAP PO SCH (10:21)
[2018-07-09 10:40] VITALS: BP 142/63; PULSE 77; RESP 16
[2018-07-09 13:49] VITALS: BP 133/63; PULSE 80; RESP 16
--- NOTE | 2018-07-09 14:08 | PDOCDIS ---
Discharge Instructions CONDITION [id number] Patient Condition: [id number] Stable HOME CARE INSTRUCTIONS: [id number] Special Diet: Aqogi6b REGULAR DIET, NPO AFTER MIDNIGHT ACTIVITY: [id number] Activity Restrictions: [id number] Slowly Increase Activity Rest between Activity Avoid heavy lifting Do not Drive Do not operate Machinery Do not operate Power Tool Avoid Heavy Housework [id number] Bathing Restrictions: [id number] Sponge Bath FOLLOW UP/APPOINTMENTS Follow-up Plan - FU with Primary MD x 1 week - FU with Oncology as recommended - FU with Surgery as recommended - Call 911 or go to the nearest hospital if symptoms get worse; patient verbalized understanding discahrge instructions Dw Dr Burleson/staff JUAN CHERRY Jul 09, 2018 14:08
--- NOTE | 2018-07-09 14:10 | DS ---
Date/Time of Note Date/Time of Note DATE: 07/09/18 TIME: 14:10 Discharge Summary Admission/Discharge Info Admit Date/Time Jul 03, 2018 at 07:52 Discharge Date/Time Home Meds No Active Prescriptions or Reported Meds Follow-up Plan - FU with Primary MD x 1 week - FU with Oncology as recommended - FU with Surgery as recommended - Call 911 or go to the nearest hospital if symptoms get worse; patient verbalized understanding discahrge instructions Dw Dr Burleson/staff Primary Care Provider Not On Staff Doctor Pending Labs Laboratory Tests Test 07/08/18 19:08 07/09/18 05:37 07/09/18 06:34 Hemoglobin 9.6 g/dl (12.0-16.0) 9.2 g/dl (12.0-16.0) Hematocrit 30.1 % (37.0-47.0) 29.4 % (37.0-47.0) White Blood Count 7.3 10^3/ul (4.8-10.8) Red Blood Count 3.08 10^6/ul (4.20-5.40) Mean Corpuscular 95.5 fl (82.0-101.0) Volume Mean Corpuscular 29.9 pg (29.0-33.0) Hemoglobin Mean Corpuscular 31.3 Hemoglobin Concent g/dl (32.0-37.0) Red Cell Distribution 14.6 % (11.5-14.5) Width Platelet Count 246 10^3/UL (140-415) Mean Platelet Volume 9.8 fl (7.4-10.4) Immature Granulocytes 1.500 % % (0.001-0.429) Neutrophils % 53.3 % (39.0-77.0) Lymphocytes % 27.8 % (15.0-51.0) Monocytes % 9.7 % (0.0-11.0) Eosinophils % 7.3 % (0.0-7.0) Basophils % 0.4 % (0.0-2.0) Nucleated Red Blood 0.0 Cells % /100WBC (0.0-0.0) Immature Granulocytes 0.110 # 10^3/ul (0.0-0.031) Neutrophils # 3.9 10^3/ul (1.6-7.5) Lymphocytes # 2.0 10^3/ul (0.8-2.9) Monocytes # 0.7 10^3/ul (0.3-0.9) Eosinophils # 0.5 10^3/ul (0.0-0.5) Basophils # 0.0 10^3/ul (0.0-0.1) Nucleated Red Blood 0.0 Cells # 10^3/ul (0.0-0.0) Sodium Level 138 mmol/L (135-144) Potassium Level 4.7 mmol/L (3.5-5.1) Chloride Level 105 mmol/L (97-110) Carbon Dioxide Level 30 mmol/L (21-31) Anion Gap 3 (5-13) Blood Urea Nitrogen 12 mg/dl (7-20) Creatinine 0.61 mg/dl (0.44-1.00) Est Glomerular > 60 mL/min (>60) Filtrat Rate mL/min Glucose Level 109 mg/dl (70-220) Calcium Level 8.4 mg/dl (8.4-10.2) Lab Scanned Report LAB [id number] JUAN CHERRY Jul 09, 2018 14:10
[2018-07-09] MEDS ORDERED: HEPARIN (100 UNITS/ML) 5 ML SYG CATHETER ONE (14:30)
--- NOTE | 2018-07-09 15:34 | PN ---
DATE: 07/09/2018 DIAGNOSES: 1. Status post left modified radical mastectomy and right mastectomy. 2. Status post drainage and evacuation of the hematoma, left breast. SUBJECTIVE: Feels better today. Today,she is much better, has been out of bed, has had a small amount of bowel movement, no nausea, no vomiting, has walked around. OBJECTIVE: GENERAL: Awake, alert, oriented x3. VITAL SIGNS: Temperature maximum today 98.5, heart rate 76, respiration 18, blood pressure 138/62, saturation 99% room air. LABORATORY DATA: WBC 7300, hemoglobin is stable at 9.2, hematocrit 29.4, platelet 246. Chemistry: Sodium and potassium normal. BUN and creatinine normal. Intake and output: Four Farrukh-De Anda drains in place, two on the right side and two on the left side. On the right side, they have drained totally 40 mL of fluid, which is serosanguineous. On the left side, they have drained totally of 110 mL, which is serosanguineous, slightly darker, indication that the remaining blood clots under the flaps are liquefying and thus giving the color. There is no evidence of active acute bleeding. CLINICAL EXAMINATION: HEART: Regular. LUNGS: Clear. Dressing is intact, not too tight. ABDOMEN: Soft. LEGS: No calf tenderness. ASSESSMENT AND PLAN: This is a 53-year-old female who had bilateral mastectomy on left side, multiple radical mastectomy, for multicentric cancer of the left breast. Postop, patient got complicated by having bleeding and hematoma formation at the site of the left breast operation. For that reason, patient had to be taken to the OR on morning and evacuation of the hematoma was performed, irrigation of the bowel was done, and two new Farrukh-De Anda drain was left in place. Postop, patient gradually did much better. At this time, today, the drainage from the right side is 40 mL per 24-hour and left side is under 10 mL per 24-hour. There is no evidence of acute bleeding. Hemoglobin has stayed stable. Therefore, the patient can be discharged to home today in the care of her and her daughter who lives by close by the hospital. Pain medication consistent of Tramadol 50 mg p.o. q.8 hours was written for the patient. Also, patient can take Tylenol p.r.n. at home for headache. The patient has some kind of medication that she does not know the name of and she is it taking at home once a while. It was recommended to her that if has to take it, she can continue that medication at home. The patient was given instruction how to take care of Farrukh-De Anda and how to drain them out to measure them. Apparently, patient has an appointment with Dr. Burciaga to be seen in his office on 07/18/2018, and patient was told that when she drains the Farrukh-De Anda, to document them down on a piece of paper and take the piece of paper with her to Dr. Burciaga' office when she goes to see Dr. Burciaga. All the questions were answered and patient was feeling comfortably to leave the hospital. Dictated By: MO LASSITER MD PS/NTS Conf#: [id number] DID#: [id number] CC: GEORGES BURCIAGA MD;*EndCC* MTDD
== END 2018-07-09 16:40 | disposition home or self-care (01) | DRG 580 ==
LOC: REC 07:52 → 2NE 14:55
PROVIDERS: ADMIT Surgery Surgical Oncology; ATTEND Surgery Surgical Oncology
PROC: 07B60ZX Excision of Left Axillary Lymphatic, Open Approach, Diagnostic (ICD-10-PCS; 2018-07-03)
PROC: 0HTV0ZZ Resection of Bilateral Breast, Open Approach (ICD-10-PCS; principal; 2018-07-03 12:00)
PROC: 30233N1 Transfusion of Nonautologous Red Blood Cells into Peripheral Vein, Percutaneous Approach (ICD-10-PCS; 2018-07-04)
PROC: 0HCU0ZZ Extirpation of Matter from Left Breast, Open Approach (ICD-10-PCS; 2018-07-06)
DX: C50.412 Malignant neoplasm of upper-outer quadrant of left female breast (principal); C77.3 Secondary and unspecified malignant neoplasm of axilla and upper limb lymph nodes; D62 Acute posthemorrhagic anemia; M96.841 Postprocedural hematoma of a musculoskeletal structure following other procedure; M96.831 Postprocedural hemorrhage of a musculoskeletal structure following other procedure; F41.9 Anxiety disorder, unspecified; F32.9 Major depressive disorder, single episode, unspecified; R51 Headache; Z17.1 Estrogen receptor negative status [ER-]; C50.312 Malignant neoplasm of lower-inner quadrant of left female breast; Z92.21 Personal history of antineoplastic chemotherapy; Y83.8 Other surgical procedures as the cause of abnormal reaction of the patient, or of later complication, without mention of misadventure at the time of the procedure; Y92.230 Patient room in hospital as the place of occurrence of the external cause
CPT/HCPCS: 36430; 71045; 80048; 80053; 84703; 85014; 85018; 85025; 85610; 85730; 86644; 86850; 86900; 86901; 86920; 87070; 87075; 88307; 93005; J0131; J0690; J1100; J1170; J1200; J1642; J1885; J2060; J2175; J2250; J2270; J2274; J2370; J2405; J2710; J3010; J3480; J7030; J7040; P9016

== ENCOUNTER 2018-09-22 14:01 | Emergency (ER) | payer OTHER ==
[~2018-09-22] VITALS: Ht 165.1 cm; Wt 79.5 kg
[2018-09-22 14:03] VITALS: Ht 165.1 cm; Wt 79.5 kg
[2018-09-22] MEDS ORDERED: SOD CHLORIDE 0.9% 1,000 ML IV STA (14:24)
[2018-09-22] MEDS ORDERED: ALPR0.254 PO (14:55)
[2018-09-22] MEDS ORDERED: HYDR-3980 PO (14:56)
[2018-09-22] MEDS ORDERED: CIPR500T4 PO (14:57)
[2018-09-22] MEDS ORDERED: KETOROLAC 30 MG INJ IV STA (16:07)
[2018-09-22] MEDS ORDERED: HEPARIN (100 UNITS/ML) 5 ML SYG CATHETER PRN (16:30)
[2018-09-22] MEDS ORDERED: PHEN-538 PO (17:06)
[2018-09-22 17:25] VITALS: BP 107/59; PULSE 55; RESP 18
--- NOTE | 2018-09-22 17:56 | ERD ---
ER Documentation Chief Complaint Chief Complaint pelvic pressure, dysuria, decrease urine output, CA pt, sent by PMD HPI Patient is a 51-year-old female with breast cancer who presents for dysuria. She was sent by Dr. Preet Farris for dysuria and decreased urine output for further workup. She has had the symptoms for the past 4 days. She went to an urgent care 3 days ago and was told that she had kidney problems and a UTI and was given Cipro. She has had swelling to her upper abdomen since the mastectomy done in June. She has no fevers. She does report hematuria. Upon review of old medical records this is the patient's third visit to the ER since 2007. She says her primary doctor is Dr. Melgar, her surgeon is Dr. Monterroso, and her oncologist is Dr. Farris. ROS All systems reviewed and are negative except as per history of present illness. Medications Home Meds Active Scripts Phenazopyridine Hcl* (Pyridium*) 200 Mg Tab, 200 MG PO TID PRN for URINARY PAIN, #6 TAB Prov:SRINIVAS CABALLERO MD 09/22/18 Reported Medications Ciprofloxacin Hcl* (Ciprofloxacin Hcl*) 500 Mg Tablet, 500 MG PO BID, #14 TAB FOR 3 DAYS, START DATE 09/21/18 09/22/18 Hydrocodone/Acetaminophen ([place] 10-325 Tablet) 1 Each Tablet, 0.5 TAB PO NEEDED, TAB 09/22/18 Alprazolam* (Alprazolam*) 0.25 Mg Tablet, 0.25 MG PO NEEDED PRN for ANXIETY, TAB 09/22/18 Allergies Allergies: Coded Allergies: pseudoephedrine (Verified Allergy, Unknown, HEART PALPATATIONS, 09/22/18) PMhx/Soc History of Surgery: Yes (hernia repair x3, breast augmentation, tonsilectomy, sarthak) Anesthesia Reaction: No Hx Neurological Disorder: No Hx Respiratory Disorders: No Hx Cardiac Disorders: No Hx Psychiatric Problems: No Hx Miscellaneous Medical Probl: Yes (HER-2 BCA) Hx Alcohol Use: No Hx Substance Use: No Hx Tobacco Use: No Smoking Status: Never smoker FmHx Family History: No diabetes Physical Exam Vitals Vital Signs Date Temp Pulse Resp B/P (MAP) Pulse Ox O2 O2 Flow FiO2 Time Delivery Rate 09/22/18 98.0 55 18 107/59 100 Room Air 17:25 (75) 09/22/18 98.0 57 18 112/57 98 Room Air 14:35 (75) 09/22/18 97.8 61 18 147/83 96 14:03 (104) Physical Exam Const: No acute distress Head: Atraumatic Eyes: Normal Conjunctiva ENT: Normal External Ears, Nose and Mouth. Neck: Full range of motion. No meningismus. Resp: Clear to auscultation bilaterally Cardio: Regular rate and rhythm, no murmurs Abd: Soft, non tender, non distended. Normal bowel sounds Skin: No petechiae or rashes Back: No midline or flank tenderness Ext: No cyanosis, or edema Neur: Awake and alert Psych: Normal Mood and Affect Result Diagram: 09/22/18 1443 09/22/18 1443 Results 24 hrs Laboratory Tests Test 09/22/18 14:43 White Blood Count 5.4 10^3/ul Red Blood Count 4.28 10^6/ul Hemoglobin 12.5 g/dl Hematocrit 38.4 % Mean Corpuscular Volume 89.7 fl Mean Corpuscular Hemoglobin 29.2 pg Mean Corpuscular Hemoglobin Concent 32.6 g/dl Red Cell Distribution Width 12.8 % Platelet Count 314 10^3/UL Mean Platelet Volume 10.0 fl Immature Granulocytes % 0.200 % Neutrophils % 43.3 % Lymphocytes % 42.5 % Monocytes % 9.0 % Eosinophils % 3.9 % Basophils % 1.1 % Nucleated Red Blood Cells % 0.0 /100WBC Immature Granulocytes # 0.010 10^3/ul Neutrophils # 2.4 10^3/ul Lymphocytes # 2.3 10^3/ul Monocytes # 0.5 10^3/ul Eosinophils # 0.2 10^3/ul Basophils # 0.1 10^3/ul Nucleated Red Blood Cells # 0.0 10^3/ul Urine Color YELLOW Urine Clarity CLEAR Urine pH 5.0 Urine Specific Basco 1.025 Urine Ketones TRACE mg/dL Urine Nitrite NEGATIVE mg/dL Urine Bilirubin NEGATIVE mg/dL Urine Urobilinogen NEGATIVE mg/dL Urine Leukocyte Esterase NEGATIVE Da/ul Urine Microscopic RBC 3 /HPF Urine Microscopic WBC 2 /HPF Urine Hemoglobin 1+ mg/dL Urine Glucose NEGATIVE mg/dL Urine Total Protein NEGATIVE mg/dl Sodium Level 140 mmol/L Potassium Level 3.7 mmol/L Chloride Level 108 mmol/L Carbon Dioxide Level 25 mmol/L Anion Gap 7 Blood Urea Nitrogen 21 mg/dl Creatinine 0.65 mg/dl Est Glomerular Filtrat Rate mL/min > 60 mL/min Glucose Level 86 mg/dl Calcium Level 9.6 mg/dl Total Bilirubin 0.3 mg/dl Direct Bilirubin 0.00 mg/dl Indirect Bilirubin 0.3 mg/dl Aspartate Amino Transf (AST/SGOT) 18 IU/L Alanine Aminotransferase (ALT/SGPT) 17 IU/L Alkaline Phosphatase 70 IU/L Total Protein 6.9 g/dl Albumin 4.1 g/dl Globulin 2.80 g/dl Albumin/Globulin Ratio 1.46 Lipase 78 U/L Current Medications Medications Dose Sig/Leno Start Time Status Last (Trade) Ordered Route PRN Stop Time Admin Dose Reason Admin Sodium 1,000 ml @ Q1H STAT 09/22/18 DC 09/22/18 Chloride 1,000 mls/hr IV 14:24 09/22/18 14:50 15:23 Ketorolac 30 mg ONCE STAT 09/22/18 DC 09/22/18 Tromethamine IV 16:07 09/22/18 16:13 (Toradol) 16:08 Heparin 500 unit ONCE PRN 09/22/18 DC 09/22/18 Sodium CATHETER D/C 16:30 09/22/18 17:12 (Porcine) PORTACATH 17:12 (Heparin Flush (100 Units/ml)) Procedures/MDM CT abdomen and pelvis negative per radiology. Patient is a 53-year-old female who presents with dysuria and decreased urine output. Creatinine is normal. Urinalysis shows no further sign of infection at this time. She is currently taking Cipro and I told her to continue this course. CT scan shows no sign of obstruction or other serious surgical problem. The patient will be discharged to follow-up with her primary doctor. She can return for any worsening symptoms. She was given 1 L normal saline for fluid resuscitation and she will be given a prescription for Pyridium for symptomatic relief. Departure Diagnosis: Primary Impression: Dysuria Additional Impression: Abdominal pain Abdominal location: generalized Qualified Codes: R10.84 - Generalized abdominal pain Condition: Fair Patient Instructions: Abdominal Pain, Dysuria Referrals: Your doctor Additional Instructions: Call your primary care doctor TOMORROW for an appointment during the next 1 WEEK.Tell the contact worker lithography that you were referred from this facility.See the doctor sooner or return here if your condition worsens before your appointment time. SRINIVAS CABALLERO MD Sep 22, 2018 17:56
== END 2018-09-22 17:30 | disposition home or self-care (01) ==
LOC: E/R 14:01
DX: R30.0 Dysuria (principal); R10.84 Generalized abdominal pain; Z85.3 Personal history of malignant neoplasm of breast
CPT/HCPCS: 74176; 80053; 81001; 83690; 85025; J1642; J1885; J7030; 36415; 96361; 96374; 96375

== ENCOUNTER → 2018-11-07 | Outpatient (CLI) | payer OTHER ==
[~2018-11-07] MED LIST changes: +ALPR0.254 PO; +CIPR500T4 PO; +HYDR-3980 PO; +PHEN-538 PO; -SUCCINYLCHOLINE CHLORIDE 100 MG/5 ML SYG IV ONE
--- NOTE | 2018-11-08 16:03 | RADRPT ---
Echocardiogram Report Patient Name: Eric MCKNIGHT ID: [id number] : 1965 (53y 7m)Study Date: 11/07/2018 11:22:10 AM Gender: FAccession #: [id number] Tech: Tisha Leon RDCS Location: EKG Ref.Physician: GEORGES SIFUENTES Height(Cm): BSA: Weight(Kg): Quality: AdequateOrder Physician: GEORGES SIFUENTES Account #: Procedures: Echocardiographic Report: Transthoracic echocardiogram with complete 2D, M-Mode, and doppler examination. Indications: Breast Cancer. Measurements: 2D/M Mode Doppler Measurement Value Normal Range Measurement Value Normal Range LVIDd 2D 4.3 [ 3.8 - 5.2 ] cm AV Peak Avni 1.1 [ 100.0 - 170.0 ] cm/sec LVIDs 2D 2.1 [ 2.2 - 3.5 ] cm AV Peak PG 5.0 [ 2.0 - 9.0 ] mmHg LVPWd 2D 0.8 [ 0.6 - 0.9 ] cm LVOT Peak Avni 0.9 [ 70.0 - 110.0 ] cm/sec IVSd 2D 0.9 [ 0.6 - 0.9 ] cm LVOT Peak PG 3.0 [ 2.0 - 6.0 ] mmHg IVS/LVPW 2D 1.1 ratio MV E Peak Avni 0.5 [ 60.0 - 130.0 ] cm/sec AoR Diam 2D 2.4 [ 2.3 - 3.1 ] cm MV A Peak Avni 0.4 [ 100.0 - 120.0 ] cm/sec LA/Ao 2D 1 ratio MV E/A 1.2 [ 0.8 - 1.5 ] ratio LA Dimen 2D 3.0 [ 2.7 - 3.8 ] cm MV Decel Time 183 [ 104 - 258 ] msec Lat E` Avni 0.1 [ 10.0 - 15.0 ] cm/sec MV E/A 1.2 [ 0.8 - 1.5 ] ratio TR Peak Avni 2.2 [ 100.0 - 280.0 ] cm/sec TR Peak PG 20.0 mmHg RVSP 23.0 [ 10.0 - 36.0 ] mmHg RA Pressure 3.0 mmHg Findings: Left Ventricle: Normal left ventricular systolic function. Normal left ventricular cavity size. Mild concentric left ventricular hypertrophy. Ejection fraction is visually estimated at 55-60 %. Tissue Doppler/Mitral Doppler indices are consistent with impaired relaxation (Stage I diastolic dysfunction). Right Ventricle: Normal right ventricular size. Normal right ventricular systolic function. Left Atrium: The left atrium is normal in size. Right Atrium: The right atrium is normal in size. Mitral Valve: Normal appearance and function of the mitral valve with trace physiologic regurgitation. Aortic Valve: Normal appearance of the aortic valve. No significant aortic stenosis or insufficiency. Tricuspid Valve: Normal appearance and function of the tricuspid valve with trace physiologic regurgitation. Normal right ventricular systolic pressure. Estimated peak PA systolic pressure 23 mmHg. Pulmonic Valve: Normal pulmonic valve appearance. Pericardium: Normal pericardium with no significant pericardial effusion. Aorta: Normal aortic root. IVC: Normal size and normal respiratory collapse consistent with normal right atrial pressure. Conclusions: Normal left ventricular systolic function. Normal left ventricular cavity size. Mild concentric left ventricular hypertrophy. Ejection fraction is visually estimated at 55-60 %. Tissue Doppler/Mitral Doppler indices are consistent with impaired relaxation (Stage I diastolic dysfunction). Normal appearance and function of the mitral valve with trace physiologic regurgitation. Normal appearance and function of the tricuspid valve with trace physiologic regurgitation. Normal right ventricular systolic pressure. Estimated peak PA systolic pressure 23 mmHg. Electronically Signed By: Rojelio Ziegler 2018-11-08 16:02:38 PDT
== END | disposition home or self-care (01) ==
LOC: EKG 09:09
PROVIDERS: ATTEND Internal Medicine Hematology
DX: C50.112 Malignant neoplasm of central portion of left female breast (principal); Z17.1 Estrogen receptor negative status [ER-]
CPT/HCPCS: 93306

== ENCOUNTER → 2019-02-12 | Outpatient (CLI) | payer OTHER | END | disposition home or self-care (01) | LOC: EKG 10:02 | PROVIDERS: ATTEND Internal Medicine Hematology | DX: A04.72 Enterocolitis due to Clostridium difficile, not specified as recurrent (principal); R53.0 Neoplastic (malignant) related fatigue; M79.10 Myalgia, unspecified site; F32.9 Major depressive disorder, single episode, unspecified; C50.112 Malignant neoplasm of central portion of left female breast; Z17.1 Estrogen receptor negative status [ER-]; Z86.19 Personal history of other infectious and parasitic diseases; Z51.11 Encounter for antineoplastic chemotherapy | CPT/HCPCS: 93306 ==

== ENCOUNTER 2019-03-07 11:08 | Emergency (ER) | payer OTHER ==
[~2019-03-07] VITALS: Ht 165.1 cm; Wt 82.7 kg
[2019-03-07 11:12] VITALS: BP 136/65; PULSE 71; RESP 18; Ht 165.1 cm; Wt 82.7 kg
== END 2019-03-07 14:15 | disposition home or self-care (01) ==
LOC: FTE 11:08
DX: R31.9 Hematuria, unspecified (principal); Z85.3 Personal history of malignant neoplasm of breast; Z85.51 Personal history of malignant neoplasm of bladder
CPT/HCPCS: 74176; 80053; 85025; Z7502